=== PATIENT | female | born 1945 | race Caucasian/White ===

== ENCOUNTER 2024-05-13 06:20 | Day surgery (SDC) | payer OTHER, SELFPAY ==
[2024-05-09 13:46] VITALS: BMI 21.8
--- NOTE | 2024-05-12 13:15 | HO.ANESPROP2 ---
HPI - Anesthesia Eval Consult details Narrative: 78yo F for Colonoscopy PMFSH Past Medical History Medical History Bilateral cataracts Osteoporosis HTN (hypertension) Surgical History Surgical History Hx of appendectomy H/O colonoscopy Social History Social History Household Members: Spouse Patient Tobacco Use Status: Never used Tobacco Use of substances other than those prescribed or required for medical reasons: No Are you DNR?: No Advance Directives: No Advance Directives Information Provided: Yes Advance Directives on File: No Recently lost weight without trying: No Nutrition Risks: No Nutritional Risk Patient : No Meds Allergies Allergy/AdvReac Type Severity Reaction Status Date / Time No Known Allergies Allergy Verified 05/09/24 13:47 Home Medications ?Medication ?Instructions ?Recorded ?Confirmed ?Last Taken ?Type aspirin 81 mg tablet,delayed 81 mg PO DAILY 05/09/24 05/09/24 Unknown History release lisinopril 20 mg tablet 30 mg PO DAILY 05/09/24 05/09/24 05/13/24 History multivitamin 1 tab PO DAILY 05/09/24 05/09/24 Unknown History Exam Height,Weight and Vital Signs: Height 5 ft 4 in Weight 57.606 kg Assessment and Plan Assessment Anesthesia Assessment: Chart Reviewed
[2024-05-13 06:45] VITALS: BMI 22.0
[2024-05-13 06:50] VITALS: BP 219/97; PULSE 67; RESP 16; TEMP 36.3; O2SAT 99
[2024-05-13 07:01] VITALS: BP 202/80; PULSE 58
[2024-05-13] MEDS: Lactated Ringers 1,000 ML 100 ML IVCONT (07:09)
--- NOTE | 2024-05-13 07:31 | P.HPSUR_ITS ---
Pre-Procedural Eval Section A - 24 Hr Update-Section A only Date of Service: 05/13/24 Section B - Complete if H&P > 30 days Chief Complaint: Encounter for screening for malignant neoplasm of Details of Present Illness: see H*&P no changes Relevant Family History (Specify if Yes): Yes Relevant Social History: None Present Medications: see Short Stay Collaborative assessment Medical History: No relevant PMH History of Previous Operations: No relevant previous surgery Allergies: Allergies Allergy/AdvReac Type Severity Reaction Status Date / Time No Known Allergies Allergy Verified 05/09/24 13:47 Review of Systems Sugical H&P ROS: Negative: Constitution, Cardiovascular, Respiratory, Neurological, Psychiatric, Hem-Onc, Allergic/Immunologic, Gastrointestinal, Genitourinary, Musculoskeletal, Integumentary, Endocrine and Eyes/Ears/ Nose/Throat Exam Surgical H&P Exam: Normal: HEENT, Normal: Heart, Normal: Lungs, Normal: Extremities, Normal: Abdomen, Normal: Skin and Normal: Neurological Plan Diagnosis/Plan: Unchanged I have reviewed the history and physical and performed a pertinent physical examination on my patient. No changes have occurred unless specified. Time Spent With Patient Time: Total time managing care of this patient today ____ minutes.
--- NOTE | 2024-05-13 07:49 | HO.ANESPROP2 ---
[facility] Past Medical History Medical History Bilateral cataracts Osteoporosis HTN (hypertension) Functional capacity: independent ambulation Patient : No Family History Family history of problems with anesthesia: No Surgical History Surgical History Hx of appendectomy H/O colonoscopy History of Problems with Anesthesia: No Social History Social History Household Members: Spouse Patient Tobacco Use Status: Never used Tobacco Use of substances other than those prescribed or required for medical reasons: No Are you DNR?: No Advance Directives: No Advance Directives Information Provided: Yes Advance Directives on File: No Recently lost weight without trying: No Nutrition Risks: No Nutritional Risk Patient : No Meds Allergies Allergy/AdvReac Type Severity Reaction Status Date / Time No Known Allergies Allergy Verified 05/09/24 13:47 Active Medications: Current Medications Lactated Ringer's (Lr) 1,000 mls @ 100 mls/hr IVCONT .Q10H KENDAL Last Admin: 05/13/24 07:09 Dose: 100 mls/hr Home Medications ?Medication ?Instructions ?Recorded ?Confirmed ?Last Taken ?Type aspirin 81 mg tablet,delayed 81 mg PO DAILY 05/09/24 05/09/24 Unknown History release lisinopril 20 mg tablet 30 mg PO DAILY 05/09/24 05/09/24 05/13/24 History multivitamin 1 tab PO DAILY 05/09/24 05/09/24 Unknown History Exam Height,Weight and Vital Signs: Height 5 ft 4 in Weight 58.173 kg Last Vital Signs Temp 97.3 F 05/13/24 06:50 Pulse 58 05/13/24 07:01 Resp 16 05/13/24 06:50 BP 202/80 H 05/13/24 07:01 Pulse Ox 99 05/13/24 06:50 O2 Del Method Room Air 05/13/24 06:50 Airway Mallampati Class: II TM Dist: >3cm Neck ROM: Full Heart: RRR Lungs: CTA Assessment and Plan Assessment Anesthesia Assessment: Anesthesia Plan Discussed and Chart Reviewed Final Anesthetic Review Family History of Problems with Anesthesia: No History of Problems with Anesthesia: No NPO: Yes ASA Class: II Final Preanesthetic Review: Meds/Allgs Chart Reviewed, Consent Obtained/Reviewed and Anes Risks/Benef Reviewed Patient Risk: Low Procedure Risk: Low Anesthetic Plan Anesthetic Plan: MAC: Disposition: Standard PACU
[2024-05-13 08:21] VITALS: BP 135/73; PULSE 55; RESP 16; TEMP 36.1; O2SAT 98
[2024-05-13 08:36] VITALS: BP 146/71; PULSE 59; RESP 20; TEMP 36.2; O2SAT 100
--- NOTE | 2024-05-13 10:37 | HO.POSTANES ---
Post Anesthesia Evaluation Post Anesthesia Evaluation Date of Service: 05/13/24 Vital Signs: Vital Signs Temp Pulse Resp BP Pulse Ox O2 Del Method 05/13/24 08:36 97.1 F 59 20 146/71 H 100 Room Air 05/13/24 08:21 97 F 55 16 135/73 98 Room Air 05/13/24 07:01 58 202/80 H 05/13/24 06:50 97.3 F 67 16 219/97 H 99 Room Air Anesthesia: Monitored Mental Status: Awake Pain Control: Satisfactory Nausea/Vomiting: None Hydration: Adequate Anesthesia-Related Issues: No Anes. Related Issues
--- NOTE | 2024-05-13 14:07 | OP_ITS ---
DATE OF SERVICE: 05/13/2024 SURGEON: Esteban Alexis MD INDICATIONS: Colon cancer screening and family history of colon cancer. PREOPERATIVE DIAGNOSIS: POSTOPERATIVE DIAGNOSIS: PROCEDURE PERFORMED: Colonoscopy to the cecum. ESTIMATED BLOOD LOSS: COMPLICATIONS: ANESTHESIA: Medications monitored anesthesia care. ASSISTANTS: SPECIMENS: DESCRIPTION OF PROCEDURE: A history and physical was performed. The risks and benefits of the procedure were explained to the patient. Informed consent was obtained. The patient was placed in the left lateral decubitus position. A digital rectal exam was performed and was found to be normal. The Olympus pediatric video colonoscope was introduced into the rectum. The scope was advanced to the cecum with the assistance of abdominal wall pressure. Examination was performed. The scope was removed. She tolerated the procedure well and was taken to recovery room in stable condition. FINDINGS: The terminal ileum was not examined. The visualized colonic mucosa was within normal limits without evidence of masses or ulcers. There was some liquid stool and undigested food material which appeared to be granola throughout the colon. This was washed and suctioned as best possible, but frequently clogged the scope. Retroflexed examination was normal. No polyps were identified. IMPRESSION: Normal colonoscopy. RECOMMENDATION: 1. Follow up as needed. 2. Repeat colonoscopy in 5 years is optional based on current age of 78 years. MD NELA Nathan/ISABELLE / [phone]
== END 2024-05-13 08:53 | disposition home or self-care (01) ==
PROVIDERS: PCP Internal Medicine Geriatric Medicine; Visit Provider Internal Medicine Gastroenterology
PROC: 0DJD8ZZ Inspection of Lower Intestinal Tract, Via Natural or Artificial Opening Endoscopic (ICD-10-PCS; CPT 45378; principal; 2024-05-13 07:30)
DX: Z12.11 Encounter for screening for malignant neoplasm of colon (principal); Z80.0 Family history of malignant neoplasm of digestive organs; I10 Essential (primary) hypertension; M81.0 Age-related osteoporosis without current pathological fracture; E55.9 Vitamin D deficiency, unspecified; Z79.82 Long term (current) use of aspirin; Z79.899 Other long term (current) drug therapy
CPT/HCPCS: 45378; J2003; J2704